=== PATIENT | male | born 1950 | race Caucasian/White ===

== ENCOUNTER → 2017-05-16 | Outpatient (CLI) | payer MEDICARE, OTHER ==
[~2017-05-16] MED LIST: ACE500 PO; ACET-2031 GT; ADV230RPT INH; ALB17R INH; ALBU8.5H IH; ALBU8.5H12 IH; ANTIBIOTIC; ANTIBIOTIC PO; ASPI-1441 PO; ASPI-1471 PO; ASPI-816 PO; BUDE10.2 INH; CALC-595 PO; CEP500 PO; CEPH-13 PO; CEPH250C37 PO; CEPH250T5 PO; CEPH500T7 PO; CITR15SO PO; DOXY50CA27; DOXY50CA27 PO; ENOX100D6 SQ; ENOX120D5 SQ; ENOX40DI8 SQ; FAM20 PO; FAMO-67 PO; FAMO20TA28 PO; FAMO20TA9 PO; FLUT1DIS32 IH; GLIM2TAB43 PO; HYDR-2966 PO; HYDR-318 PO; HYDR-3250 GT; HYDR-389 PO; HYDR12.561 PO; HYDR200T42 PO; IBU800 PO; IBUP600T22 PO; LEVO-85 PO; LEVO750T25 PO; LOR5/325 PO; LOSA25TA50 PO; METF500T4 PO; METXR500; ONDA4TAB9 PO; OXYGEN INH; PENI-22 PO; PHEN200T32 PO; PHENA200 PO; PRED20TA6 PO; SIMV-49 PO; TAMS0.4C25 PO; VICO; WARF-18 PO; WARF3TAB36 PO; [UNRECOGNIZED DRUG - CODE] PO; [UNRECOGNIZED DRUG - CODE] PO; [UNRECOGNIZED DRUG - OTHER]
--- NOTE | 2017-05-16 11:45 | RADIOLOGY IMAGING REPORT ---
FACILITY: [facility] PATIENT NAME: Sav Carrera : 1950 MR: [id number] V: [id number] EXAM DATE: ORDERING PHYSICIAN: PAM ABDULLAHI TECHNOLOGIST: [place] [facility] [place] Sav Carrera : 1950 Visit/Account:[id number] Date of Sevice: 05/16/2017 ABDOMEN/PELVIS W/O CONTRAST HISTORY: Nephrolithiasis TECHNIQUE: Axial images acquired through the abdomen/pelvis. Coronal and sagittal reformatting also performed. No IV contrast administered. Dose Lowering Technique One of the following dose optimization techniques was utilized in the performance of this exam: Autom ated exposure control; adjustment of the mA and/or kV according to the patient's size; or use of an i terative reconstruction technique. Specific details can be referenced in the facility's radiology C T exam operational policy. COMPARISON: January 13, 2016 FINDINGS: Visualized lung bases: Previously noted 4 mm left lower lobe pulmonary nodule now appears more consi stent with a scar or atelectasis. Previous seen noted tiny micronodules in both lower lobes remain u nchanged. A small calcified left paraesophageal nodule that remains unchanged Hepatobiliary: There are postsurgical changes from a prior cholecystectomy. Spleen: Spleen appears mildly enlarged measuring 14.3 cm in length relatively unchanged Adrenals: Negative. Pancreas: Negative. Kidneys ureters and bladder: At least four nonobstructing calculi are identified in the right renal c ollecting system the largest is in the upper pole and measures approximately 4.5 mm in diameter. At least eight nonobstructing calculi are seen in the left renal collecting system largest measuring up to 6 mm. There is no demonstration of hydronephrosis or hydroureter. 1.3 cm cyst upper pole of the right kidney. . This mild perinephric stranding bilaterally Genitalia: Prostate gland is mildly enlarged GI: There is diverticulosis left-sided colon although no CT evidence of acute diverticulitis. Vessels/spaces/nodes: There are multiple enlarged retroperitoneal and bilateral inguinal lymph nodes appearing similar to the prior study or slightly decreased in size.. There is a left inguinal herni a containing fat. Bones/soft tissues: Extensive spondylotic changes at L4-5 and L5-S1. Previously described scleroti c density along the posterior aspect of the L1 vertebral body appears relatively unchanged Additional findings: None pertinent. IMPRESSION: Extensive bilateral nonobstructing nephrolithiasis as detailed above with mild perinephric stranding bilaterally Small bilateral micronodules lower lobes have remained stable Postsurgical changes from a cholecystectomy Mild splenomegaly unchanged Diverticulosis left-sided colon although no CT evidence of acute diverticulitis There are multiple enlarged retroperitoneal and bilateral inguinal lymph nodes appearing similar to s lightly decreased in size when compared to the prior study. Left inguinal hernia containing fat Report Dictated By: Debbi Scales MD at 05/16/2017 11:22 AM Report E-Signed By: Debbi Scales MD at 05/16/2017 11:40 AM WSN:[email or web address]
== END ==
LOC: CT 10:12
DX: N20.0 Calculus of kidney (principal); N28.1 Cyst of kidney, acquired; R91.8 Other nonspecific abnormal finding of lung field; R16.1 Splenomegaly, not elsewhere classified; K57.30 Diverticulosis of large intestine without perforation or abscess without bleeding; K40.90 Unilateral inguinal hernia, without obstruction or gangrene, not specified as recurrent; Z90.49 Acquired absence of other specified parts of digestive tract
CPT/HCPCS: 74176

== ENCOUNTER 2017-07-10 02:34 | Day surgery (SDC) | payer MEDICARE, OTHER ==
[2017-07-07 09:53] LABS: PLATELET COUNT, AUTOMATED 164 K/uL (150-450)
[~2017-07-10] VITALS: Ht 185.4 cm; Wt 121.1 kg
[~2017-07-10 02:34] MED LIST changes: +ENOX40DI9 SQ; -WARF-18 PO; +WARF5TAB23 PO
[2017-07-10 06:27] LABS: INR 1.12
[2017-07-10] MEDS ORDERED: ceFAZolin(*) 2GM/D5W 50ML 50 ML IVPB ONE (06:30)
[2017-07-10] MEDS ORDERED: MIDAZOLAM 2 MG/2 ML VIAL IVP ONE (06:30)
[2017-07-10] MEDS ORDERED: LIDOCAINE/SOD BICARB 8.4% SYR ID ONE (06:30)
[2017-07-10] MEDS ORDERED: FAMOTIDINE 20 MG TAB PO ONE (06:30)
[2017-07-10] MEDS ORDERED: NORMOSOL R SOLN(*) 1000 ML BAG 1,000 ML IV PRN (06:30)
--- NOTE | 2017-07-10 06:30 | EKG ---
FACILITY: [facility] PATIENT NAME: CATHIE BACA : [id number] MR: [id number] V: [id number] EXAM DATE: ORDERING PHYSICIAN: NURIS TURPIN TECHNOLOGIST: MAZIN Test Reason : PRE-OP Blood Pressure : / mmHG Vent. Rate : 068 BPM Atrial Rate : 068 BPM P-R Int : 232 ms QRS Dur : 088 ms QT Int : 456 ms P-R-T Axes : 027 -35 016 degrees QTc Int : 484 ms Sinus rhythm with 1st degree AV block with occasional premature ventricular complexes Left axis deviation Low voltage QRS No ST-T abnormalities When compared with ECG of 07-JUL-2016 16:00, premature ventricular complexes are now present Relatively unchanged Confirmed by PABLO PEMBERTON ([id number]) on 07/10/2017 6:44:57 AM Referred By: Confirmed By:PABLO PEMBERTON
[2017-07-10 07:02] VITALS: BP 115/84
[2017-07-10] MEDS ORDERED: fentaNYL CITR 250 MCG/5 ML AMP ONE (07:03)
[2017-07-10] MEDS ORDERED: IOPAMIDOL-200 50 ML VIAL IS ONE ×2 (07:09→07:59)
[2017-07-10] MEDS ORDERED: ONDANSETRON 4 MG/2 ML VIAL ONE (07:20)
[2017-07-10] MEDS ORDERED: PROPOFOL EMUL(*) 10MG/ML 20 ML 20 ML ONE (07:20)
[2017-07-10] MEDS ORDERED: LIDOCAINE MPF 1% 5 ML VIAL ONE ×2 (07:20)
[2017-07-10] MEDS ORDERED: DEXAMETHASONE SOD PHOS 10MG/ML ONE (07:20)
[2017-07-10] MEDS ORDERED: KETAMINE HCL 200 MG/20 ML MDV ONE (07:32)
--- NOTE | 2017-07-10 07:42 | RADIOLOGY IMAGING REPORT ---
FACILITY: [facility] PATIENT NAME: Sav Carrera : 1950 MR: [id number] V: [id number] EXAM DATE: ORDERING PHYSICIAN: PAM ABDULLAHI TECHNOLOGIST: Location: [facility] Patient: Sav Carrera : 1950 Visit/Account:[id number] Date of Sevice: 07/10/2017 TOMOGRAPHY AND KUB W/CASSETTE HISTORY: Stones. Preop. COMPARISON: CT abdomen and pelvis 05/16/2017 TECHNIQUE: KUB was obtained as well as tomograms at 10, 11, and 12 cm. FINDINGS: There are surgical clips in the right upper quadrant from cholecystectomy. There is a 5 mm calculus in the right upper kidney. There are calculi in the left kidney. The largest measures 7 mm. There is degenerative change of the spine, greatest at L4-5 where it is moderate to severe. There is moderate stool throughout colon. No obstruction. IMPRESSION: 1. Bilateral nephrolithiasis. Report Dictated By: Flory Castano at 07/10/2017 7:34 AM Report E-Signed By: Flory Castano at 07/10/2017 7:38 AM WSN:[id number]
[2017-07-10] MEDS ORDERED: ePHEDrine 25 MG/5 ML DISP.SYR IVP ONE (07:47)
[2017-07-10] MEDS ORDERED: CEPH500T7 PO ×2 (09:56→09:57)
[2017-07-10] MEDS ORDERED: FAMO20TA28 PO (09:58)
[2017-07-10] MEDS ORDERED: HYDR-4308 PO (09:59)
[2017-07-10 10:40] VITALS: BP 112/69
[2017-07-10 10:45] VITALS: BP 119/79
[2017-07-10 10:49] VITALS: BP 109/84
--- NOTE | 2017-07-10 10:54 | OPERATIVE REPORT 1 ---
EVENT DATE: July 10, 2017 SURGEON: Negro Staley MD ANESTHESIOLOGIST: Ismael Salazar MD ANESTHESIA: General PREOPERATIVE DIAGNOSIS Bilateral renolithiasis. POSTOPERATIVE DIAGNOSIS Bilateral renolithiasis. PROCEDURE PERFORMED 1. Cystourethroscopy. 2. Bilateral ureteral stent placement. 3. Left extracorporeal shock wave lithotripsy of four stones. 4. Right extracorporeal shock wave lithotripsy of two stones. 5. Bilateral external stent removal. 6. Left indwelling ureteral stent placement, 6 x 26 cm Percuflex Plus. DESCRIPTION OF PROCEDURE Under general anesthetic, the patient was prepped and draped in the extended lithotomy position. The 21 panendoscope was admitted through the urethra into the bladder. Bladder was irrigated clear. Both ureteral orifices were present. Bladder showed 4+ trabeculation. Trigone and ureteral orifices were normal. Prostate showed trilobar hyperplasia with obstruction. Urethra was normal. Five whistle tip catheters were passed up both collecting systems. The patient was positioned for left extracorporeal shock wave lithotripsy, and four stones were treated on the left, staying with low kV throughout for a total of 3000 shocks. The stones appeared to satisfactorily disintegrate. The patient was repositioned for right extracorporeal shock wave lithotripsy. The two right renal stones were treated with a total of 2500 shocks using again a low kV. The external stents were removed. The access catheter was placed up the left system. A 0.038 guidewire was placed. The 6 Macedonian x 26 cm Percuflex Plus passed up the left collecting system without any difficulty. X-ray confirmed satisfactory positioning of the left ureteral stent. The bladder was drained. Patient tolerated the procedure satisfactorily and returned to the recovery room in satisfactory condition. INDICATION FOR PROCEDURE This is a 66-year-old white male complaining of bilateral renolithiasis. Patient has sarcoidosis, where those patients have difficulty unfortunately with calcium oxalate type stones. Patient has a fairly large stone volume on the left side, and two calculi on the right side. Options were discussed with the patient pre-treatment. Patient opted for evaluation and therapy. That has been accomplished, see operative note for details. DISCHARGE INSTRUCTIONS Patient will be ready for discharge home when alert and functional, to force fluids, 12 glasses of water per day. Activities are as tolerated. He is to strain all of his urine. He is sent home with strainers. He is to percuss both kidneys frequently to facilitate passage of stone particles. Copy of instructions for renal percussion were given to the patient. She was discharged on Keflex, Pepcid, Pyridium and Pierce therapy in addition to his usual medications. Plan follow up July 18, 2017 with KUB and tomograms to be done that a.m., and then bring the films to the office for review and for planned possible followup therapy. PONCE
[2017-07-17] MEDS ORDERED: ENOX40DI9 SQ (15:35)
== END 2017-07-10 10:40 | disposition home or self-care (01) ==
LOC: OR 02:34
DX: N20.0 Calculus of kidney (principal); I10 Essential (primary) hypertension; E11.9 Type 2 diabetes mellitus without complications; Z86.718 Personal history of other venous thrombosis and embolism
CPT/HCPCS: 36415; 36416; 50590; 52332; 74018; 76100; 82948; 83036; 85025; 85610; 93005; A9270; C1758; C1769; C1894; C2617; J1100; J2001; J2405; J2704; J3010; J3490; Q9966; 82310; 82374; 82435; 82565; 82947; 84132; 84295; 84520; J0690

== ENCOUNTER → 2017-07-18 | Outpatient (CLI) | payer MEDICARE, OTHER ==
[~2017-07-18] MED LIST changes: +HYDR-4308 PO
--- NOTE | 2017-07-18 14:14 | RADIOLOGY IMAGING REPORT ---
FACILITY: [facility] [place] PATIENT NAME: Sav Carrera : 1950 MR: [id number] V: [id number] EXAM DATE: ORDERING PHYSICIAN: PAM ABDULLAHI TECHNOLOGIST: Location: [facility] Patient: Sav Carrera : 1950 Visit/Account:[id number] Date of Sevice: 07/18/2017 Exam type: TOMOGRAPHY AND KUB W/CASSETTE History: Check up following postop stone removal Comparison: Nephrotomograms and KUB July 10, 2017 Findings: There is a left ureteral stent placed. Is a 4 mm calculus projecting over the mid pole the right kid roberto. There is a 2 mm calcination projecting over the lower pole of the left kidney too small calcina tion occasions the pelvis were present on a prior KUB from March 06, 2016 Representing phleboliths. There are moderate spondylotic changes of the lumbar spine IMPRESSION: 1. Left ureteral stent Bilateral nephrolithiasis Report Dictated By: Debbi Scales MD at 07/18/2017 2:05 PM Report E-Signed By: Debbi Scales MD at 07/18/2017 2:10 PM WSN:[email or web address]
== END ==
LOC: RAD 10:35
DX: N20.0 Calculus of kidney (principal); Z96.0 Presence of urogenital implants; I87.8 Other specified disorders of veins; M47.896 Other spondylosis, lumbar region

== ENCOUNTER 2017-07-24 00:40 | Day surgery (SDC) | payer MEDICARE, OTHER ==
[2017-07-24] VITALS (7 sets, daily range): BP systolic 113–130; BP diastolic 68–94
[~2017-07-24] VITALS: Ht 185.4 cm; Wt 120.7 kg
[~2017-07-24 00:40] MED LIST changes: -ASPI-816 PO; +ASPI-870 PO; +ceFAZolin(*) 2GM/D5W 50ML 50 ML IVPB ONE
[2017-07-24] MEDS ORDERED: PROPOFOL EMUL(*) 10MG/ML 20 ML 20 ML ONE (13:29)
[2017-07-24] MEDS ORDERED: LIDOCAINE 2% IV 100 MG/5ML SYR ONE (13:31)
[2017-07-24] MEDS ORDERED: fentaNYL CITR 100 MCG/2 ML AMP ONE ×2 (13:32→16:49)
[2017-07-24 14:46] LABS: INR 1.08
[2017-07-24] MEDS ORDERED: MIDAZOLAM 2 MG/2 ML VIAL IVP PRN (14:55)
[2017-07-24] MEDS ORDERED: ceFAZolin(*) 2GM/D5W 50ML 50 ML IVPB ONE (14:55)
[2017-07-24] MEDS ORDERED: NORMOSOL R SOLN(*) 1000 ML BAG 1,000 ML IV PRN ×2 (14:55→15:00)
[2017-07-24] MEDS ORDERED: FAMOTIDINE 20 MG TAB PO ONE (14:55)
[2017-07-24] MEDS ORDERED: LIDOCAINE/SOD BICARB 8.4% SYR ID ONE (14:55)
[2017-07-24] MEDS ORDERED: IOPAMIDOL-200 50 ML VIAL IS ONE (15:43)
--- NOTE | 2017-07-24 15:48 | RADIOLOGY IMAGING REPORT ---
FACILITY: [facility] PATIENT NAME: Sav Carrera : 1950 MR: [id number] V: [id number] EXAM DATE: ORDERING PHYSICIAN: PAM ABDULLAHI TECHNOLOGIST: Location: [facility] Patient: Sav Carrera : 1950 Visit/Account:[id number] Date of Sevice: 07/24/2017 ABDOMEN PELVIS ESWL CYSTO W/O HISTORY: kidney stones TECHNIQUE: Axial images acquired through the abdomen/pelvis. Coronal and sagittal reformatting also performed. No IV contrast administered. Dose Lowering Technique One of the following dose optimization techniques was utilized in the performance of this exam: Autom ated exposure control; adjustment of the mA and/or kV according to the patient's size; or use of an i terative reconstruction technique. Specific details can be referenced in the facility's radiology C T exam operational policy. COMPARISON: May 16, 2017 FINDINGS: Visualized lung bases: Tiny micronodules in the lung bases have remained stable. Small calcified le ft paraesophageal lymph node also stable Hepatobiliary: Postsurgical changes from a cholecystectomy Spleen: Mild splenomegaly unchanged small accessory splenule Adrenals: Negative. Pancreas: Negative. Kidneys ureters and bladder: There is one 2 mm nonobstructing calculus in the upper pole of the right kidney and several tiny 1 mm scattered nonobstructing calculi. There Is a left ureteral stent in p lace . There is moderate dilatation of the left renal collecting system and moderate dilatation of t he proximal two thirds of the left ureter with periureteral stranding. No calculi are identified in the left renal collecting system nor along the course of the stent Genitalia: Prostate gland is mildly enlarged GI: There Is diverticulosis left-sided colon although no CT evidence of acute diverticulitis . Sma ll hiatal hernia Vessels/spaces/nodes: There are multiple enlarged retroperitoneal and bilateral inguinal lymph nodes appearing similar to the prior study Bones/soft tissues: There Is a left inguinal hernia containing fat and a small umbilical hernia cont aining fat There are extensive spondylotic changes of the lumbar spine. Sclerotic density L1 also unchanged Additional findings: None pertinent. IMPRESSION: There is been a decrease in the bilateral nephrolithiasis with a single 2 mm nonobstructing calculus now seen in the upper pole the right kidney and several tiny 1 mm calculi also present No left renal calculi are identified. There is a left ureteral stent in place with moderate dilatati on of left renal collecting system and moderate dilatation of the proximal two thirds of the left ure ter. There is periureteral stranding. Diverticulosis left-sided colon although no CT evidence of acute diverticulitis Small hiatal hernia Multiple enlarged retroperitoneal and bilateral inguinal lymph nodes appearing similar to the prior s tudy however clinical follow-up recommended. Left inguinal hernia containing fat Report Dictated By: Debbi Scales MD at 07/24/2017 3:15 PM Report E-Signed By: Debbi Scales MD at 07/24/2017 3:44 PM TAON:[email or web address]
[2017-07-24] MEDS ORDERED: KETAMINE HCL 200 MG/20 ML MDV ONE (16:00)
[2017-07-24] MEDS ORDERED: DEXAMETHASONE SOD 4 MG/ML VIAL ONE (16:22)
[2017-07-24] MEDS ORDERED: WATER FOR IRRIG,STERILE 3000ML IR ONE (16:33)
[2017-07-24] MEDS ORDERED: ONDANSETRON 4 MG/2 ML VIAL ONE (16:36)
[2017-07-24] MEDS ORDERED: HYDR-4308 PO (17:27)
[2017-07-24] MEDS ORDERED: FAMO-67 PO (17:28)
[2017-07-24] MEDS ORDERED: CEPH500T7 PO (17:30)
[2017-07-24] MEDS ORDERED: GENTAMICIN/NS 80 MG/100 ML PB 100 ML IVPB ONE (18:05)
--- NOTE | 2017-07-25 19:58 | OPERATIVE REPORT 1 ---
EVENT DATE: July 24, 2017 SURGEON: Negro Staley MD ANESTHESIOLOGIST: Mendez Albert MD ANESTHESIA: General anesthetic. PREOPERATIVE DIAGNOSES 1. Bilateral renal lithiases. 2. Left ureteral stent, indwelling. POSTOPERATIVE DIAGNOSES 1. Bilateral renal lithiases. 2. Left ureteral stent, indwelling. PROCEDURES PERFORMED 1. Cystourethroscopy. 2. Left ureteral stent removal. 3. Bilateral external stent placement and subsequent removal. 4. Left extracorporeal shock wave lithotripsy, one stone. 5. Right extracorporeal shock wave lithotripsy, one stone. DESCRIPTION OF PROCEDURE Under general anesthetic, the patient was prepped and draped in the extended lithotomy position. The 21 panendoscope admitted through the urethra into the bladder. The left indwelling stent was removed. No stones were visible in the bladder. The 6 whistle-tipped catheter was passed up both collecting systems without any difficulty. Utilizing contrast, a stone in the mid pole area of the left kidney was treated with a total of 1500 shocks using low kV throughout. The patient was repositioned for right extracorporeal shock wave lithotripsy. The small calculi in the superior pole of the right kidney were treated with a total of 500 shocks, again using low kV throughout. The external stents were removed at the conclusion of the procedure. Patient tolerated the procedures satisfactorily and returned to the recovery room in satisfactory condition. This is a 65-year-old white male complaining of bilateral urolithiases. Patient is status postop bilateral ESWLs a little over two weeks ago. Patient was then followed up for reevaluation and therapy. See operative note for details. Patient will be ready for discharge home when alert and functional. Force fluids, 12 glasses of water per day. Activities are restricted to careful ambulation. He is to percuss both kidneys frequently to facilitate passage of stone particles. He is to strain all his urine. He was sent home with strainers. A copy of instructions were given to the patient. He is to continue his usual medications. He was given a dose of gentamicin 80 mg IV prior to discharge. Patient has sarcoidosis that gives him a chronic urolithiasis problem of calcium oxalate stone formation. Patient's kidneys appear to be as free of calculi as compared to any prior treatment by me. Patient and are so advised in this regard. Plan followup in approximately two weeks. [facility]
== END 2017-07-24 18:00 | disposition home or self-care (01) ==
LOC: OR 00:40
DX: N20.0 Calculus of kidney (principal); E11.9 Type 2 diabetes mellitus without complications; I10 Essential (primary) hypertension; Z86.718 Personal history of other venous thrombosis and embolism; Z79.01 Long term (current) use of anticoagulants
CPT/HCPCS: 36415; 36416; 50590; 74176; 82948; 85610; A9270; C1758; J1100; J1580; J2001; J2405; J2704; J3010; J3490; Q9966; J0690

== ENCOUNTER → 2017-08-16 | Outpatient (CLI) | payer MEDICARE, OTHER ==
[~2017-08-16] MED LIST changes: -ceFAZolin(*) 2GM/D5W 50ML 50 ML IVPB ONE
== END ==
LOC: RESP 20:57
PROVIDERS: ATTEND Internal Medicine
DX: Z02.9 Encounter for administrative examinations, unspecified (principal)

== ENCOUNTER → 2017-11-03 | Outpatient (CLI) | payer MEDICARE, OTHER | LOC: LAB 07:41 | PROVIDERS: ATTEND Internal Medicine Nephrology | DX: E83.50 Unspecified disorder of calcium metabolism (principal); N18.3 Chronic kidney disease, stage 3 (moderate); N20.0 Calculus of kidney; R82.99 Other abnormal findings in urine; N28.9 Disorder of kidney and ureter, unspecified; E72.53 Primary hyperoxaluria | CPT/HCPCS: 82340; 82507; 83945 ==

== ENCOUNTER → 2018-05-18 | Outpatient (CLI) | payer MEDICARE, OTHER ==
[~2018-05-18] MED LIST changes: +AZIT-17 PO; -HYDR-4308 PO; +HYDR-654 PO; -LOSA25TA50 PO; +LOSA25TA57 PO; +ZOLP-1 PO
== END ==
LOC: RESP 20:49
PROVIDERS: ATTEND Internal Medicine
DX: G47.33 Obstructive sleep apnea (adult) (pediatric) (principal); G47.61 Periodic limb movement disorder; G47.36 Sleep related hypoventilation in conditions classified elsewhere

== ENCOUNTER → 2018-06-12 | Outpatient (CLI) | payer MEDICARE, OTHER | LOC: LAB 09:22 | PROVIDERS: ATTEND Internal Medicine Nephrology | DX: N28.9 Disorder of kidney and ureter, unspecified (principal); N20.0 Calculus of kidney; N18.3 Chronic kidney disease, stage 3 (moderate); R82.994 Hypercalciuria; R82.991 Hypocitraturia | CPT/HCPCS: 82340; 82507; 83945 ==

== ENCOUNTER → 2018-06-30 | Outpatient (CLI) | payer MEDICARE, OTHER | LOC: RESP 19:57 | PROVIDERS: ATTEND Internal Medicine | DX: G47.33 Obstructive sleep apnea (adult) (pediatric) (principal); G47.36 Sleep related hypoventilation in conditions classified elsewhere; G47.61 Periodic limb movement disorder ==